=== PATIENT | female | born 1990 | race Caucasian/White ===

== ENCOUNTER 2017-02-19 10:47 | Emergency (ER) | payer BC, OTHER ==
[2017-02-19 11:08] VITALS: BP 105/73
--- NOTE | 2017-02-19 11:15 | UC ---
HPI Febrile Illness - HPI Summary HPI Summary: fevers on/off for last 2 weeks initially had chest tightness seen at [facility] (has not seen PCP---does not have one) ekg and CXR done patient reports no acute issues---- - History of Current Complaint Chief Complaint: UCGeneralIllness Time Seen by Provider: 02/19/17 11:13 Hx Obtained From: Patient Hx Last Menstrual Period: 02/12/17 Onset/Duration: Started Weeks Ago - 2, Still Present - chest and lung discofort have resolved,now has urticara and emesis one time in the night last night Initial Severity: Mild Current Severity: Mild Aggravating Factors: Nothing Alleviating Factors: OTC Medicine - Benadryl Associated Signs and Symptoms: Arthralgia - legs and knees, Joint Pain, Nausea, Rash - Allergy/Home Medications Allergies/Adverse Reactions: Allergies Allergy/AdvReac Type Severity Reaction Status Date / Time No Known Allergies Allergy Verified 02/19/17 11:04 PMH/Surg Hx/FS Hx/Imm Hx Previously Healthy: Yes - Surgical History Surgical History: Yes Surgery Procedure, Year, and Place: Blocked tear duct as infant - Family History Known Family History: Positive: None - Social History Occupation: Employed Full-time - 7th grade social studies teacher Lives: With Family Alcohol Use: Occasionally Substance Use Type: None Smoking Status (MU): Never Smoked Tobacco Review of Systems Constitutional: Fever - on off for 2 weeks Skin: Rash - hive like began in past couple of days Eyes: Negative ENT: Negative Respiratory: Cough - resolved Cardiovascular: Chest Pain - resolved Gastrointestinal: Vomiting - times one over night last night Genitourinary: Negative Motor: Negative Neurovascular: Negative Musculoskeletal: Arthralgia - legs and knees Neurological: Negative Psychological: Negative Is Patient Immunocompromised?: No All Other Systems Reviewed And Are Negative: Yes Physical Exam Triage Information Reviewed: Yes Appearance: Well-Appearing, No Pain Distress, Well-Nourished Vital Signs: Initial Vital Signs Temp 98.2 F 02/19/17 11:05 Pulse 67 02/19/17 11:05 Resp 17 02/19/17 11:05 BP 105/73 02/19/17 11:05 Pulse Ox 100 02/19/17 11:05 Vital Signs Reviewed: Yes Eye Exam: Normal Eyes: Positive: Conjunctiva Clear ENT Exam: Normal ENT: Positive: Normal ENT inspection, Hearing grossly normal, Pharynx normal, TMs normal. Negative: Nasal congestion, Nasal drainage, Tonsillar swelling, Tonsillar exudate, Trismus, Muffled/hoarse voice Dental Exam: Normal Neck exam: Normal Neck: Positive: Supple, Nontender, No Lymphadenopathy Respiratory Exam: Normal Respiratory: Positive: Chest non-tender, Lungs clear, Normal breath sounds, No respiratory distress, No accessory muscle use Cardiovascular Exam: Normal Cardiovascular: Positive: RRR, No Murmur, Pulses Normal, Brisk Capillary Refill Abdominal Exam: Normal Abdomen Description: Positive: Nontender, No Organomegaly, Soft. Negative: CVA Tenderness (R), CVA Tenderness (L) Bowel Sounds: Positive: Present Musculoskeletal Exam: Normal Musculoskeletal: Positive: Strength Intact, ROM Intact, No Edema Neurological Exam: Normal Neurological: Positive: Alert, Muscle Tone Normal Psychological Exam: Normal Skin Exam: Normal Diagnostics - Laboratory Diagnostic Studies Completed/Ordered: ua wnl, u peg (-) Course/Dx - Course Course Of Treatment: Pepcid and zyrtec day time benadryl at night for hives, lab studies follow with pcp this week - Diagnoses Clinic Provider Diagnoses: Idopathic urticaria Discharge - Discharge Plan Condition: Stable Disposition: HOME Prescriptions: Cetirizine HCl [Zyrtec Allergy 10 MG TAB] 10 mg PO QAM #30 tab Famotidine TAB* [Pepcid 20 MG TAB*] 20 mg PO BID #14 tab Patient Education Materials: Famotidine (By mouth), Diphenhydramine (By mouth) , Cetirizine (By mouth), Urticaria (ED), Viral Syndrome (ED) Referrals: [facility] [Outside] - 1 Week
[2017-02-19 14:28] LABS: Hematocrit 40 % (35-47); Hemoglobin 14.1 g/dl (12.0-16.0); Mean Corpuscular HGB Conc 35 g/dl (31-36); Mean Corpuscular Hemoglobin 31 pg (27-31); Mean Corpuscular Volume 90 fL (80-97); Mean Platelet Volume 9 um3 (7.4-10.4); Red Blood Count 4.48 10^6/ul (4.0-5.4); Red Cell Distribution Width 12 % (10.5-15); White Blood Count 6.3 10^3/ul (3.5-10.8)
--- NOTE | 2017-02-21 19:14 | UC ---
Progress - Progress Note Progress Note: CALL PATIENT LYME (-), HIV 1/2 (-)
== END 2017-02-19 12:10 | disposition home or self-care (01) ==
LOC: UCEAST 10:47
DX: L50.1 Idiopathic urticaria (principal); M25.562 Pain in left knee; M25.561 Pain in right knee; R11.0 Nausea; Z32.02 Encounter for pregnancy test, result negative
CPT/HCPCS: 36415; 81003; 84702; 85025; 86618; 86703; 99202; G0463

== ENCOUNTER 2017-12-19 18:27 | Emergency (ER) | payer BC ==
[2017-12-19 18:51] VITALS: BP 110/70
--- NOTE | 2017-12-19 18:57 | UC ---
Throat Pain/Nasal Ruddy HPI - HPI Summary HPI Summary: 27 yo female presents with sore throat and pain with swallowing for the last 2 days - worst today. She tells me that she has had strep multiple times in the past - most recently was about 5 months ago and that this sore throat feels the same. Unsure if she has had a fever as she has not taken her temp, but she has felt hot/cold at times. Denies cough, SOB, chest pain, or rash. - History of Current Complaint Chief Complaint: UCGeneralIllness Stated Complaint: SORE THROAT Time Seen by Provider: 12/19/17 18:57 Hx Obtained From: Patient Hx Last Menstrual Period: 12/04/2017 Onset/Duration: Sudden Onset Severity: Severe Pain Intensity: 8 Pain Scale Used: 0-10 Numeric - Allergies/Home Medications Allergies/Adverse Reactions: Allergies Allergy/AdvReac Type Severity Reaction Status Date / Time No Known Allergies Allergy Verified 02/19/17 11:04 Home Medications: Home Medications Norgestimate-Ethinyl Estradiol [[id number]-[id number] Tablet] 12/19/17 [History] PMH/Surg Hx/FS Hx/Imm Hx - Additional Past Medical History Additional PMH: None - Surgical History Surgical History: Yes Surgery Procedure, Year, and Place: Blocked tear duct as infant - Family History Known Family History: Positive: None - Pt denies FMHX - Social History Occupation: Employed Full-time Lives: With Family Alcohol Use: Weekly Substance Use Type: None Smoking Status (MU): Never Smoked Tobacco Review of Systems Constitutional: Chills Skin: Negative Eyes: Negative ENT: Sore Throat Respiratory: Negative Cardiovascular: Negative Gastrointestinal: Negative Neurovascular: Negative Neurological: Negative Psychological: Negative All Other Systems Reviewed And Are Negative: Yes Physical Exam - Summary Physical Exam Summary: GENERAL: NAD. WDWN. No pain distress. SKIN: No rashes, sores, lesions, or open wounds. HEENT: Head: AT/NC Eyes: Conjunctiva clear without inflammation or discharge. Ears: Hearing grossly normal. TMs intact, no bulging, erythema, or edema. Nose: Nasal mucosa pink and moist. NTTP maxillary and frontal sinus. Throat: Posterior oropharynx moderate erythema and 2+ tonsillar enlargement. No exudates. Uvula midline. No hoarse voice or muffled voice. NECK: Supple. Mild tender tonsillar LAD. CHEST: CTAB. No r/r/w. No accessory muscle use. Breathing comfortably and in no distress. CV: RRR. Without m/r/g. Pulses intact. Cap refill <2seconds NEURO: Alert. CN II-XII grossly intact. PSYCH: Age appropriate behavior. Triage Information Reviewed: Yes Vital Signs: Initial Vital Signs Temp 98.0 F 12/19/17 18:46 Pulse 66 12/19/17 18:46 Resp 16 12/19/17 18:46 BP 110/70 12/19/17 18:46 Pulse Ox 100 12/19/17 18:46 Laboratory Tests 12/19/17 18:59 Group A Strep Rapid Negative Vital Signs Reviewed: Yes Throat Pain/Nasal Course/Dx - Course Course Of Treatment: Althought POC strep was negative, her hx, symptoms, and exam support a high suspicion for strep. Will treat with amoxicillin. - Differential Dx/Diagnosis Provider Diagnoses: Strep pharyngitis Discharge - Sign-Out/Discharge Documenting (check all that apply): Patient Departure All imaging exams completed and their final reports reviewed: No Studies - Discharge Plan Condition: Stable Disposition: HOME Prescriptions: Amoxicillin PO (*) [Amoxicillin 500 MG CAP*] 500 mg PO Q12H #14 cap Patient Education Materials: Strep Throat (DC) Referrals: Rimma Pacheco MD [Primary Care Provider] - Additional Instructions: If you develop a fever, shortness of breath, chest pain, new or worsening symptoms - please call your PCP or go to the ED. - Billing Disposition and Condition Condition: STABLE Disposition: Home - Attestation Statements Provider Attestation: Per institutional requirements, I have reviewed the chart, however, I was not consulted specifically or made aware of this patient by the midlevel provider. I did not personally evaluate, interact with , or disposition this patient.
== END 2017-12-19 19:25 | disposition home or self-care (01) ==
LOC: UCEAST 18:27
DX: J02.0 Streptococcal pharyngitis (principal)
CPT/HCPCS: 87651; 99212; G0463